=== PATIENT | male | born 1970 | race African-American/Black ===

== ENCOUNTER 2017-01-06 21:27 | Emergency (ER) | payer MEDICAID ==
[~2017-01-06] VITALS: Ht 180.3 cm; Wt 73.0 kg
[~2017-01-06 21:27] MED LIST: IOHEXOL-300 100 ML BOTTLE ONE; SODIUM CHLORIDE 0.9% 10ML VIAL ONE
[2017-01-06] MEDS ORDERED: SODIUM CHLORIDE 0.9% 1,000 ML IV ONE (23:34)
[2017-01-06] MEDS ORDERED: ONDANSETRON HCL 4MG/2ML VIAL IV STA (23:34)
[2017-01-06] MEDS ORDERED: MORPHINE SULFATE 4 MG/ML CPJ (NOT FOR IM USE) IV STA (23:34)
[2017-01-06 23:57] LABS: BASOPHILS % 0.6 % (0.0-2.0); EOSINOPHILS % 0.8 % (0.0-5.0); HEMATOCRIT. 39.9 % (42.0-52.0); HEMOGLOBIN. 13.5 g/dL (14.0-18.0); LYMPHOCYTES % 26.4 % (20.0-50.0); MEAN CORPUSCULAR HEMOGLOBIN 30.5 pg (28.0-32.0); MEAN CORPUSCULAR VOLUME 90.2 fL (80.0-94.0); MEAN PLATELET VOLUME 7.4 fl (7.4-10.4); MONOCYTES % 7.3 % (2.0-8.0); NEUTROPHILS % 64.9 % (40.0-76.0); PLATELET 299 x1000/uL (130-400); RED BLOOD CELL COUNT 4.43 mill/uL (4.7-6.1); RED CELL DISTRIBUTION WIDTH 13.9 % (11.6-14.6)
[2017-01-07 00:04] LABS: CHLORIDE 106 mEq/L (98-107)
[2017-01-07 00:06] LABS: PARTIAL THROMBOPLASTIN TIME 28.2 sec (24.0-34.0); PROTHROMBIN TIME 10.6 sec
[2017-01-07 00:13] LABS: CARBON DIOXIDE 29 mEq/L (21-32)
[2017-01-07 05:19] VITALS: BP 110/76
== END 2017-01-07 05:29 | disposition home or self-care (01) ==
LOC: ER 21:27
DX: R10.12 Left upper quadrant pain (principal); F17.210 Nicotine dependence, cigarettes, uncomplicated; F10.10 Alcohol abuse, uncomplicated; Y90.9 Presence of alcohol in blood, level not specified; Z87.19 Personal history of other diseases of the digestive system; Z98.890 Other specified postprocedural states
CPT/HCPCS: 36415; 74177; 80053; 83690; 85025; 85610; 85730; 96361; 96374; 96375; 99285; A4216; J2270; J2405; J7030; Q9967; Z7610

== ENCOUNTER 2024-12-13 22:01 | Emergency (ER) | payer MEDICAID ==
[~2024-12-13] VITALS: Ht 172.7 cm; Wt 60.0 kg
[2024-12-13 22:05] VITALS: BP 151/115; PULSE 97; RESP 16; TEMP 36.5; O2SAT 98
[2024-12-13 23:09] LABS: BASOPHILS % 0.4 % (0.0-2.0); EOSINOPHILS % 0.6 % (0.0-5.0); HEMATOCRIT. 39.5 % (42.0-52.0); LYMPHOCYTES % 15.1 % (20.0-50.0); MEAN CORPUSCULAR HEMOGLOBIN 29.3 pg (28.0-32.0); MEAN PLATELET VOLUME 6.8 fl (7.4-10.4); MONOCYTES % 7.3 % (2.0-8.0); NEUTROPHILS % 76.6 % (40.0-76.0); PLATELET 380 x1000/uL (130-400); RED BLOOD CELL COUNT 4.44 mill/uL (4.7-6.1); WHITE BLOOD COUNT 9.9 x1000/uL (4.5-11.0)
[2024-12-13 23:18] LABS: CARBON DIOXIDE 29 mEq/L (21-32); CHLORIDE 104 mEq/L (98-107); POTASSIUM 3.8 mEq/L (3.5-5.1); SODIUM 140 mEq/L (136-145)
[2024-12-13 23:19] LABS: CALCIUM 9.8 mg/dL (8.7-10.4)
[2024-12-13 23:23] LABS: CREATININE 0.9 mg/dL (0.6-1.3); GLUCOSE 101 mg/dL (70-105)
[2024-12-13 23:24] LABS: ETHANOL BLOOD < 10 mg/dL (<10); UREA NITROGEN BLOOD 11 mg/dL (9-23)
[2024-12-13] MEDS: MAGNESIUM/ALUMINUM HYDROXIDE/SIMETHICONE 30ML UDC PO ONE (23:45)
[2024-12-14] MEDS ORDERED: ONDA4TAB50 MT (01:09)
[2024-12-14] MEDS ORDERED: OMEP40CA20 MT ×2 (01:09→05:29)
[2024-12-14] MEDS: ACETAMINOPHEN 325MG TABLET PO ONE (01:26)
== END 2024-12-14 01:28 | disposition home or self-care (01) ==
LOC: ER 22:01
DX: R10.815 Periumbilic abdominal tenderness (principal); R11.2 Nausea with vomiting, unspecified; I10 Essential (primary) hypertension; Z79.899 Other long term (current) drug therapy
CPT/HCPCS: 36415; 74176; 80048; 80320; 85025; 99284; G0480

== ENCOUNTER 2024-12-14 02:02 | Emergency (ER) | payer MEDICAID ==
[~2024-12-14] VITALS: Ht 180.3 cm; Wt 73.0 kg
[~2024-12-14 02:02] MED LIST changes: -IOHEXOL-300 100 ML BOTTLE ONE; +OMEP40CA20 MT; +ONDA4TAB50 MT; -SODIUM CHLORIDE 0.9% 10ML VIAL ONE
[2024-12-14 02:40] VITALS: O2SAT 100
[2024-12-14 02:45] VITALS: BP 142/102; PULSE 99; RESP 16; TEMP 36.7; O2SAT 100
[2024-12-14] MEDS: VISCOUS LIDOCAINE 2% 15 ML UDC MM ONE (04:10)
[2024-12-14] MEDS: PANTOPRAZOLE 40MG DR TABLET PO ONE (04:10)
[2024-12-14] MEDS: ONDANSETRON 4MG ODT PO ONE (04:10)
[2024-12-14] MEDS ORDERED: OMEP40CA20 MT (05:29)
== END 2024-12-14 07:10 | disposition home or self-care (01) ==
LOC: ER 02:02
DX: K29.70 Gastritis, unspecified, without bleeding (principal); I10 Essential (primary) hypertension; K21.9 Gastro-esophageal reflux disease without esophagitis; Z79.899 Other long term (current) drug therapy
CPT/HCPCS: 99284; 93005; Q0162